=== PATIENT | male | born 1975 | race African-American/Black ===

== ENCOUNTER 2019-10-02 16:46 | Emergency (ER) | payer OTHER ==
[2019-10-02 17:05] VITALS: BP 159/98; PULSE 93; TEMP 98.4; BMI 32.5
--- NOTE | 2019-10-02 17:34 | PDOC ---
History of Present Illness - General Chief Complaint: Injury Stated Complaint: FALL Time Seen by Provider: 10/02/19 16:58 - History of Present Illness Initial Comments: 10/02/19 17:32 44-year-old male with a history of a Traumatic brain injury presents for evaluation after fall. He has no complaints. He lives in a residential facility where he is required to be evaluated after a fall Past History - Medical History Allergies/Adverse Reactions: Allergies Allergy/AdvReac Type Severity Reaction Status Date / Time No Known Allergies Allergy Verified 10/12/17 02:02 Home Medications: Ambulatory Orders NK [No Known Home Medication] 02/19/14 COPD: No - Psycho-Social/Smoking History Smoking History: Never smoked Have you smoked in the past 12 months: No Information on smoking cessation initiated: No - Substance Abuse Hx (Audit-C & DAST Scrn) How often the patient has a drink containing alcohol: Never Score: In Men: 4 or > Positive; In Women: 3 or > Positive: 0 Screen Result (Pos requires Nsg. Audit-10AR): Negative In the last yr the pt used illegal drug/Rx for NonMed reason: No Score: Yes response is considered Positive: 0 Screen Result (Positive result requires Nsg. DAST-10): Negative Review of Systems - Review of Systems Musculoskeletal: No: Joint Pain *Physical Exam - Vital Signs Last Vital Signs Temp Pulse Resp BP Pulse Ox 98.4 F 93 H 18 159/98 96 10/02/19 16:57 10/02/19 16:57 10/02/19 16:57 10/02/19 16:57 10/02/19 16:57 - Physical Exam General Appearance: Yes: Appropriately Dressed, Apparent Distress. No: Disheveled HEENT: positive: Symmetrical Neck: positive: Supple Extremity: negative: Tender Medical Decision Making - Medical Decision Making 10/02/19 17:33 Benign examination I have reviewed the pathophysiology with the patient. They are in agreement with the treatment plan all questions were answered to their satisfaction. Understanding for follow-up without fail was also conveyed to the patient. Again they are in agreement. Discharge - Discharge Information Problems reviewed: Yes Clinical Impression/Diagnosis: Fall Condition: Stable Disposition: HOME - Admission No - Follow up/Referral Referrals: José Antonio Chou MD [Primary Care Provider] - - Patient Discharge Instructions Additional Instructions: Return to the emergency room for further issues and without fail follow-up with your primary care physician in 1 to 2 days for further evaluation and treatment options sooner if you have concerns. - Post Discharge Activity
== END 2019-10-02 17:50 | disposition home or self-care (01) ==
LOC: JERFT 16:46
DX: R68.89 Other general symptoms and signs (principal); W19.XXXA Unspecified fall, initial encounter
CPT/HCPCS: 99282-25